=== PATIENT | male | born 1970 | race Two or more races ===

== ENCOUNTER 2023-12-05 10:06 | Emergency (ER) | payer OTHER ==
[~2023-12-05] VITALS: Ht 185.4 cm; Wt 106.1 kg
[2023-12-05] MEDS ORDERED: METFORMIN HCL500 M3 (10:50)
== END 2023-12-05 15:14 | disposition home or self-care (01) ==
LOC: ER 10:07
DX: S93.492A Sprain of other ligament of left ankle, initial encounter (principal); W01.0XXA Fall on same level from slipping, tripping and stumbling without subsequent striking against object, initial encounter; Y93.89 Activity, other specified; Y92.89 Other specified places as the place of occurrence of the external cause; E11.9 Type 2 diabetes mellitus without complications; Z79.84 Long term (current) use of oral hypoglycemic drugs